=== PATIENT | female | born 1990 | race Hispanic/Latino ===

== ENCOUNTER 2017-05-14 17:19 | Inpatient (IN) | payer BC, OTHER ==
[2017-05-14 17:54] LABS: #Eosinphils 0.2 thou/uL (0.0-0.7); #Lymphocytes 1.2 thou/uL (1.20-3.40); #Monocytes 0.3 thou/uL (0.11-0.59); #Neutrophils 10.3 thou/uL (1.40-6.50); %Basophils 0.2 % (0.0-1.0); %Eosinophils 1.7 % (0.0-10.0); %Lymphocytes 10.2 % (21.0-51.0); %Monocytes 2.7 % (0.0-10.0); Hematocrit 24.4 % (36.0-47.0); Mean Platelet Volume 7.7 fL (7.4-10.4); Red Blood Cell (RBC) Count 2.82 mill/uL (4.20-5.40); White Blood Cell (WBC) Count 12.1 thou/uL (4.8-10.8)
[2017-05-14 18:04] LABS: Bilirubin Negative (Negative); Blood, Urine Large (Negative); Glucose, Urine (Dipstick) Negative (Negative); Ketone, Urine Negative (Negative); Nitrite Negative (Negative); Protein, Urine (Dipstick) 300 mg/dL (Neg-Trace); Urobilinogen 0.2 mg/dL (0.2-1.0)
[2017-05-14 18:12] LABS: Lactic Acid - Sepsis 0.8 mmol/L (0.5-2.2)
[2017-05-14 18:13] LABS: Bacteria/HPF Rare-Few HPF (None Seen); Hyaline Casts/LPF 4-6 HYALINE CAST LPF (0-3 Hyaline)
[2017-05-14] MEDS ORDERED: Acetaminophen 500 MG TAB ONE (18:13)
[2017-05-14 18:16] LABS: ALT (SGPT) Less than 7 U/L (8-55); AST (SGOT) 7 U/L (5-34); Alkaline Phosphatase 75 U/L (40-150); Anion Gap 15 mmol/L (10-20); BUN (Urea Nitrogen) 40 mg/dL (7.0-18.7); Bilirubin, Total 0.3 mg/dL (0.2-1.2); Calc. Creatinine Clearance 0 mL/min (70-130); Calcium 8.3 mg/dL (7.8-10.44); Carbon Dioxide 21 mmol/L (22-29); Chloride 103 mmol/L (98-107); Estimated GFR-MDRD 12; Globulin 3.7 g/dL (2.4-3.5); Protein, Total 7.1 g/dL (6.0-8.3)
[2017-05-14 18:28] LABS: Renal Epithelial None Seen HPF (0-3); Transitional Epithelial NONE SEEN HPF (0-3)
[2017-05-14 19:53] LABS: Troponin I Less than 0.010 ng/mL (< 0.028)
--- NOTE | 2017-05-14 20:18 | RAD ---
AP VIEW CHEST: 05/14/17 HISTORY: Cough. AP view chest is obtained on 05/14/17. COMPARISON: Comparison made to previous exam from 11/14/14. AP view chest demonstrates interval development of marked cardiomegaly which was not present on the patient's previous radiograph. This may represent possible developed cardiomyopathy or pericardial effusion. It may be worthwhile t o consider an echocardiogram to evaluate for possible cardiac abnormalities. No other intrathoracic abnormality seen. IMPRESSION: Developed cardiomegaly. There is marked enlargement of the cardiac silhouette since the previous rad iographs from approximately two years earlier. POS: MARK
[2017-05-14] MEDS ORDERED: Nitroglycerin 2% Ointment 1 INCH/1 GM Packet ONE (20:39)
[2017-05-14 21:03] LABS: Prothrombin Time 43.2 SEC (12.0-14.7)
[2017-05-14 21:04] LABS: PTT 110.8 SEC (22.9-36.1)
[2017-05-14] MEDS ORDERED: HYDROcodone/Acetaminophen 10/325 mg Tablet PO PRN (22:10)
[2017-05-14] MEDS ORDERED: Acetaminophen 325 MG TAB PO PRN (22:10)
[2017-05-14] MEDS ORDERED: HYDROcodone/Acetaminophen 5/325 mg Tablet PO PRN (22:10)
[2017-05-14] MEDS ORDERED: Sodium Chloride 0.9% 1,000 ML IV SCH (22:10)
[2017-05-14] MEDS ORDERED: Phytonadione 10 MG/ML AMP PO SCH (22:10)
[2017-05-14 23:38] VITALS: BMI 32.5
[2017-05-14] MEDS ORDERED: Hydroxychloroquine Sulfate 200 MG TAB PO SCH (23:45)
[2017-05-14] MEDS ORDERED: cloNIDine 0.3 MG TAB PO SCH (23:45)
[2017-05-14] MEDS ORDERED: Mycophenolate 250 MG CAP PO SCH (23:45)
[2017-05-14] MEDS ORDERED: Carvedilol 6.25 MG TAB PO SCH (23:45)
--- NOTE | 2017-05-15 00:28 | HP ---
PRIMARY CARE PHYSICIAN: Listed as Kevin Adame, Pt states Dimple Winters is her PCP. PRIMARY ART GILDER: Maximilian Lam M.D. and PRIMARY ELECTRIC ENGINE MECHANIC: Robinson Antony M.D. CHIEF COMPLAINT: Weakness. HISTORY OF PRESENT ILLNESS: Ms. Forte is a 27-year-old female with a history of systemic lupus erythematosus, with known complications of lupus nephritis, past DVTs due to antiphospholipid syndrome, and known chronic kidney disease. The patient was in normal state of health. I has told the ER doctor, she had 3 weeks of increased cough and chills, but no fever, no nausea, no vomiting, diarrhea, no GI bleeding. Today, she started feeling more weak than normal. She started her normal menstrual cycle 3-4 days ago which have been slightly heavier than normal, but presented to an outside facility where she had her hemoglobin checked. Hemoglobin was reportedly 6.8. She was sent to the emergency department for evaluation. Here her hemoglobin was noted to be 8.2, but due to the weakness, we are called to observe overnight. The patient denies any other complaints. No chest pain or difficulty breathing. No other current complaints. She has had multiple transfusions in the past due to low blood counts, she only lives in the 8.5 range. Last transfusion in 10/2016. She did see Dr. Lam recently and thinks that her creatinine was 3.3 at that point. PAST MEDICAL HISTORY: 1. Hypertension. 2. Systemic lupus erythematosus with nephritis. 3. Anemia of chronic disease/iron deficiency anemia. 4. DVT x2 in the past. 5. Antiphospholipid syndrome. 6. Seizure disorder x1 episode back in she thinks 2009 and no seizure activity. 7. CKD likely stage 4, has been off of hemodialysis in 2009. She follows with Dr. Maximilian Lma. PAST SURGICAL HISTORY: 1. Right upper extremity fistula placement. 2. LEEP/cone cervical resection procedure. 3. Laparoscopic ovarian cyst surgery on 07/19/2011 and cervical biopsy in the past. HOME MEDICATIONS: 1. Clonidine 0.3 mg p.o. t.i.d. 2. Coreg 6.25 mg p.o. b.i.d. 3. Coumadin 7.5 mg Saturday and Saturday, 5 mg every other day. 4. Plaquenil 200 mg p.o. b.i.d. 5. Isosorbide mononitrate 30 mg daily. 6. Mycophenolate 1000 mg b.i.d. 7. Vitamin D with calcium 4000 units daily. 8. Prednisone 5 mg daily. 9. Iron sulfate 325 mg p.o. b.i.d. 10. Folic acid 1 mg p.o. daily. 11. Calcitriol 0.5 mcg daily. ALLERGIES: NKDA. FAMILY HISTORY: Significant for her mom with lupus diagnosed 2 years after the patient was. SOCIAL HISTORY: She lives with her and daughter locally. Negative for habits x3. REVIEW OF SYSTEMS: A 10-point review of systems was performed and negative for all other systems except as stated as per HPI. The patient is currently to be evaluated for renal transplant evaluations early as next week. PHYSICAL EXAMINATION: VITAL SIGNS: Temperature 97.4, pulse 105, blood pressure 156/108, respiratory 18, O2 sat 98% on room air. GENERAL: She is awake. She is alert. She is oriented x3. She is a well- developed, well-nourished female appears to be in no acute distress. HEENT: She is normocephalic and atraumatic. Pupils are equal and reactive to light bilaterally, mucous membranes moist, no visible lesions, no thrush. NECK: Supple, without lymphadenopathy, JVD, or thyromegaly. She has normal carotid upstrokes. I do not appreciate bruits. LUNGS: Clear to auscultation bilaterally. She has no wheezes, no rales or rhonchi. She has excellent air exchange and good chest excursion symmetrical. CARDIOVASCULAR: She is tachycardic, but regular. Normal S1 and S2. No audible murmurs. ABDOMEN: Soft, is nontender, nondistended, no masses, no organomegaly. EXTREMITIES: Show no cyanosis, no clubbing, and no edema. She does have a right upper extremity fistula with palpable thrill and audible bruit. SKIN: Warm, moist, and well perfused. She has no other rashes or lesions. NEUROLOGIC: Cranial nerves II-XII are grossly intact without any focal neurologic deficits. SKIN: She has normal speech pattern and 5/5 strength. MUSCULOSKELETAL: Normal to inspection. She has no inflamed joints. No palpable joint effusion and normal range of motion. LABORATORY DATA: CMP is fairly normal except for bicarbonate of 21 and a creatinine of 4.27, up from when she thinks a baseline of 3.3. Her calculated MDRD creatinine clearance is 12, calcium is 8.3. Liver functions are normal. CBC showed a white count slightly elevated 12.1, hemoglobin 8.2, hematocrit of 24.4 and platelets 270,000. Chest x-ray showed new cardiomegaly. INR was 4.3. Troponin I and CK-MB were negative. BNP was elevated at 216 and flu studies were negative. Urinalysis was contaminated. ASSESSMENT AND PLAN: 1. Weakness: Etiology unclear. Certainly could be symptomatic anemia, but currently her hemoglobin is at her baseline level. She has been typed and crossed for 2 units, but I will not transfuse here yet. We will check a blood count in the morning. 2. Menorrhagia with increased INR. We will give her 5 mg of vitamin K now. We will recheck her INR in the morning. We will hold off on giving her Coumadin today. 3. Hypertension on clonidine, Coreg, isosorbide: We will continue these. Then the orders will be written once her medication reconciliation has been done. 4. Systemic lupus erythematosus antiphospholipid syndrome. The patient is on continuous Coumadin due to recurrent DVTs. We will continue her Plaquenil, mycophenolate and prednisone. 5. History of deep venous thrombosis x2: On Coumadin. Supratherapeutic INR present. 6. History of antiphospholipid syndrome on Coumadin for life. 7. History of seizures x1. She is not on any seizure prophylaxis. We will not continue her on any right now. 8. Acute kidney injury and chronic kidney disease: I am unsure if this progression of her chronic kidney disease or this is an acute injury. I will give her IV fluids carefully at 50 mL per hour overnight, monitor I's and O's very carefully. Recheck her creatinine in the morning. 9. New cardiomegaly: Concerning for pericarditis with effusion versus increased heart size. We will get a 2D echocardiogram in the morning. Cardiology was consulted by the emergency department. I will follow up on their opinion. AMY
[2017-05-15 05:44] LABS: #Eosinphils 0.1 thou/uL (0.0-0.7); #Lymphocytes 1.3 thou/uL (1.20-3.40); #Monocytes 0.3 thou/uL (0.11-0.59); #Neutrophils 4.5 thou/uL (1.40-6.50); %Basophils 0.6 % (0.0-1.0); %Eosinophils 1.9 % (0.0-10.0); %Lymphocytes 20.4 % (21.0-51.0); %Monocytes 4.9 % (0.0-10.0); Hematocrit 18.3 % (36.0-47.0); Mean Platelet Volume 7.6 fL (7.4-10.4); Red Blood Cell (RBC) Count 2.09 mill/uL (4.20-5.40); White Blood Cell (WBC) Count 6.3 thou/uL (4.8-10.8)
[2017-05-15 06:09] LABS: ALT (SGPT) Less than 7 U/L (8-55); AST (SGOT) 6 U/L (5-34); Alkaline Phosphatase 56 U/L (40-150); Anion Gap 14 mmol/L (10-20); BUN (Urea Nitrogen) 40 mg/dL (7.0-18.7); Bilirubin, Total 0.3 mg/dL (0.2-1.2); Calc. Creatinine Clearance 24 mL/min (70-130); Calcium 7.7 mg/dL (7.8-10.44); Carbon Dioxide 18 mmol/L (22-29); Chloride 110 mmol/L (98-107); Estimated GFR-MDRD 14; Globulin 2.7 g/dL (2.4-3.5); Protein, Total 5.2 g/dL (6.0-8.3)
[2017-05-15 08:08] LABS: Prothrombin Time 33.2 SEC (12.0-14.7)
[2017-05-15] MEDS: Calcitriol 0.25 MCG CAP PO SCH (08:53)
[2017-05-15] MEDS: Carvedilol 6.25 MG TAB PO SCH ×2 (08:53→20:49)
[2017-05-15] MEDS: Ferrous Sulfate 325 MG TAB PO SCH ×2 (08:54→20:48)
[2017-05-15] MEDS: cloNIDine 0.3 MG TAB PO SCH ×3 (08:54→20:48)
[2017-05-15] MEDS: Famotidine 20 MG TAB PO SCH (08:54)
[2017-05-15] MEDS: Folic Acid 1 MG TAB PO SCH (08:54)
[2017-05-15] MEDS: Hydroxychloroquine Sulfate 200 MG TAB PO SCH ×2 (08:55→20:49)
[2017-05-15] MEDS: predniSONE 5 MG TAB PO SCH (08:55)
[2017-05-15] MEDS: Isosorbide Dinitrate 20 MG TAB PO SCH (08:55)
[2017-05-15] MEDS: Mycophenolate 250 MG CAP PO SCH ×2 (08:55→20:47)
[2017-05-15] MEDS ORDERED: FLU VACC QS2017-18 36 mo. & older 0.5 ML SYRINGE IM ONE (09:00)
[2017-05-15] MEDS: Metoprolol Tartrate 5 MG/5 ML VIAL IVP PRN (10:43)
--- NOTE | 2017-05-15 12:10 | CON ---
DATE OF CONSULTATION: 05/15/2017 HISTORY OF PRESENT ILLNESS: Ms. Forte is a 27-year-old female with chronic renal failure from lupus nephritis. She is being [facility] for her worsening renal dysfunct ion. She eventually is nearing ESRD. She still has a working AV fistula. She was admitted for gen eralized weakness. She was noted to be severely anemic. She has received several units of packed R BC. She is being followed up by Hematology, but due to the labile hypertension, she could not receive th e Aranesp or Epogen from her ingot stripper. Her recent hemoglobin was noted at 6.0. The patient is feeling better after the blood transfusion. REVIEW OF SYSTEMS: Mild shortness of breath. No nausea, no vomiting, no diarrhea, no constipation, no syncopal episode, no diarrhea, no fever or chills, no abdominal pain, no hematochezia, no melen a, no hematemesis. Occasional joint pain. No new skin rash. MEDICATIONS: [place] 10/325 q.4h. p.r.n., Calcitriol 0.25 mcg daily, Coreg 6.25 mg p.o. b.i.d., Catap res 0.3 mg p.o. t.i.d., Pepcid 20 mg daily, Plaquenil 200 mg p.o. b.i.d., Lopressor 5 mg IV q.6h. p. r.n., Isordil 30 mg daily, CellCept 1000 mg p.o. b.i.d., normal saline at 50 mL per hour. PAST MEDICAL HISTORY: 1. Systemic lupus erythematosus. 2. Chronic renal failure from lupus nephritis, status post acute kidney injury, was on hemodialysis for several months, but eventually recovered enough renal function 3. Longstanding hypertension. 4. Chronic anemia. 5. Status post deep venous thrombosis. 6. History of antiphospholipid syndrome, status post seizure disorder. PAST SURGICAL HISTORY: 1. Status post right upper extremity fistula placement. 2. Status post cuffed hemodialysis catheter placement. 3. Status post surgical resection. 4. Status post laparoscopic ovarian cyst surgery. ALLERGIES: None. TRAUMA: None. IMMUNIZATIONS: Up to date. HOSPITALIZATIONS: Please see past medical history. SOCIAL HISTORY: The patient is , 1 child. Currently no smoking, no alcohol intake. Status post blood transfusion. Education; high school. 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 No I V drug abuse. FAMILY HISTORY: No family history of ESRD. PHYSICAL EXAMINATION: VITAL SIGNS: Blood pressure 196/74, heart rate 104, temperature 97.1, pulse ox 99%. GENERAL: Awake, alert, comfortable, not in distress. SKIN: Adequate turgor. HEENT: Pale conjunctivae, anicteric sclerae. NECK: No neck mass, no carotid bruits, no JVD. CHEST: No deformities. LUNGS: Clear breath sounds. HEART: Normal sinus rhythm. No murmur, no gallops or rubs. ABDOMEN: Globular, soft, nontender, no masses. EXTREMITIES: No edema, no deformities. LABORATORY: 05/15/2017 - White count 6.3, hemoglobin 6, hematocrit 18.3. 05/14/2017 - Hemoglobin was 8.2. Sodium 138, potassium 4.2, chloride 110, carbon dioxide 18, BUN 40, creatinine 3.9, glucose 83, calc ium 7.7, AST 6, ALT less than 7, albumin 2.5. - Creatinine 4.27. 04/11/2017 - Creatinine was 3.5. ASSESSMENT AND PLAN: 1. Chronic renal failure secondary to lupus nephritis - progressive renal dysfunction. At the pres ent time, there is no indication for any emergent dialytic intervention. We will consider initiatin g dialysis once GFR is less than 10 mL per minute. 2. Hypertension - still not optimally controlled. We will add hydralazine 50 mg p.o. t.i.d., attem pt to optimize blood pressure control, so we can initiate Epogen with this patient. 3. Anemia, multifactorial etiology, p.r.n. blood transfusion. The patient is being followed by the [facility].
--- NOTE | 2017-05-15 13:27 | EKG ---
Test Reason : Blood Pressure : / mmHG Vent. Rate : 097 BPM Atrial Rate : 097 BPM P-R Int : 140 ms QRS Dur : 084 ms QT Int : 338 ms P-R-T Axes : 038 007 045 degrees QTc Int : 429 ms Normal sinus rhythm Cannot rule out Anterior infarct (cited on or before 14-MAY-2017) Abnormal ECG When compared with ECG of 14-MAY-2017 19:18, (Unconfirmed) Questionable change in initial forces of Lateral leads Confirmed by DR. Aletha AVILA ([id number]) on 05/15/2017 1:27:11 PM Referred By: ZEINAB Confirmed By:DR. Aletha AVILA
--- NOTE | 2017-05-15 14:34 | CON ---
DATE OF CONSULTATION: 05/15/2017 INDICATION FOR CONSULTATION: This is a 27-year-old female with a pericardial effusion. HISTORY OF PRESENT ILLNESS: This very unfortunate 27-year-old female was diagnosed with lupus appro ximately 9 years ago, about 1 year after delivery of her first and only child. She is also diagnose d with antiphospholipid syndrome. She has had DVTs in the past. She has been on Coumadin chronical ly or continuously for the last 9 years. She presented to the hospital after she complained of weak ness and coughing and chills, but no fevers. She has no energy. 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 She was seen and admitted to the hospital. At that time, she was found to have signific ant anemia. Her hemoglobin was down to 6.8 today, also was repeated and was found to be 6.0. She h as been given 1 unit of blood. I believe another one is being planned for transfusion. She also bailey s a history of iron deficiency anemia in the past. Unfortunately, she also has chronic kidney disea se. She has been off of dialysis and consideration given for transplant. About 2-3 months ago, she noticed significant lower extremity edema and then it resolved on its own without dialysis. Her [facility] dialysis actually was in 2009, shortly after she was diagnosed with the renal failure and lupus. Other than that she denied any chest pain. She has been doing quite well, but complained of mainly the fatigue and most likely this is associated with her severe anemia. She denied any previous car diac history. She did have an echocardiogram performed, which shows at least a moderate-sized peric ardial effusion with what appears to be slightly early or pre-tamponade physiology with some collaps e of the right atrium in diastole, but not significant. She did have mild left atrial and left vent ricular dilatation, but this is only borderline. She had the effusion; it was measured at 1.5-1.9 c m in diameter. She also has what appears to be diastolic dysfunction, but the ejection fraction was normal at 60%-65%. PAST MEDICAL HISTORY: Significant for DVT, antiphospholipid syndrome, systemic lupus erythematosus, hypertension, seizure disorder, iron deficiency anemia, chronic kidney disease, and lupus nephritis . She has been seen by Dr. Lam, who has been following her on a routine basis. SOCIAL HISTORY: She is . She has 1 child, age 10. She has no alcohol or tobacco abuse. Lio ruth works at [employer]. FAMILY HISTORY: Noncontributory, but she does have apparently a mother with a diagnosis of lupus ap proximately 1 year after she was diagnosed. ALLERGIES: None. PRESENT MEDICATIONS: Calcitriol, Coreg 6.25 mg b.i.d., Pepcid 20 mg a day. She is on Feosol 325 mg b.i.d., Folvite 1 mg daily, hydroxychloroquine 200 mg b.i.d., isosorbide dinitrate 30 mg p.o. daily , metoprolol was given IV and I do not see any new pill was given, but she is on Coreg. She is on C ellCept. She is on warfarin; also the INR level was about 4.3 and she was given vitamin K. She is also on clonidine 0.3 mg three times a day and prednisone 5 mg a day, hydralazine 50 mg t.i.d. ALLERGIES: None. REVIEW OF SYSTEMS: A 12-point review of systems is unremarkable. She does have a right arm shunt. Otherwise, she just mainly complained of the fatigue and the weakness. PHYSICAL EXAMINATION: GENERAL: Reveals a young female. VITAL SIGNS: Her heart rate is 108 and she is in sinus rhythm. Blood pressure was 194/118. She is afebrile and respiratory rate was 20. HEENT EXAM: Reveals the head to be normocephalic, atraumatic. Carotid pulses are present. No brui ts. CHEST: Clear to auscultation. I did not hear any rales, rhonchi, or wheezing. CARDIOVASCULAR EXAM: Reveals a regular rate and rhythm. I did not hear any significant bruits, mur murs, heaves, or thrills. She does have radiation from the arm area from her right shunt up into th e cardiac area, which is indicated by a bruit. Otherwise, there were no significant abnormalities n oted. ABDOMINAL EXAM: Soft and nontender. EXTREMITIES: Show no clubbing, cyanosis, or edema. Pedal pulses are present. NEUROLOGIC: She appears to be fully intact. SKIN: Warm and dry. IMAGING: Her EKG shows a normal sinus rhythm without any acute changes. There is no indication baldo t she has any tamponade physiology on the EKG either. There were no acute abnormalities noted. She does have decreased R-wave progression in anterior leads, but this is still within normal limits. LABORATORY DATA: Shows a hemoglobin of 6.0 with a hematocrit 18.3, white blood cell count 6.3, plat elet count 183. Her INR earlier was 4.3. She was given vitamin K and it is now down to 3.1 today. Her creatinine is 3.9 with a BUN of 40 and potassium was 4.2. The BNP was 216. IMPRESSION: 1. A moderate-sized pericardial effusion with probable pre-tamponade physiology. Fortunately, she does have hypertension and the blood pressure remains stable. She continues to make some urine. flory has had a positive output today. So, there does not appear to be any significant indication that she has any tamponade at this time. 2. Significant anemia. She has already had 1 unit of transfuse. She will receive another unit. I believe she has also been followed in the past by Hematology. 3. Chronic kidney disease. This obviously may have become worsened at this time and she may need t o undergo dialysis associated with the pericardial effusion in order to decrease the effusion. This may also not only be due to the lupus, but may have some component of uremic pericarditis. She den ied any chest pain, however. I have discussed her case with Dr. Lam. He will most likely plan for early dialysis in this patient again. She has been on dialysis in the past, and she has a shunt wit h a good thrill in the right arm. 3. History of hypertension. This is obviously significantly elevated and may improve with dialysis . I believe it is up to the discretion of Dr. Lam as to how he wishes to manage the hypertension. 4. History of seizure disorder. She has had no seizures since 2008. She had 2 seizures in the and apparently has not had any seizure since that time. 5. Antiphospholipid syndrome, for which she has had deep vein thromboses in the past. She has had no recent problems. She did have, I believe, a study performed since being in the hospital that did show evidence of deep vein thrombosis, but I believe this was back in 2014. There is no indication that she has had any recent further deep vein thromboses. Her INR was elevated and she was given v itamin K. We hope that this has only decreased it down somewhat, not to completely reverse the Coum sherron effects. Otherwise, she may be at increased risk of having further deep vein thromboses. She had an echocardiogram performed today, which showed a normal ejection fraction and the moderate-size d pericardial effusion. She does have evidence of diastolic dysfunction also. As far as the valvul ar structures are concerned, she only has mild tricuspid and mitral valve regurgitation and mild pul monary valve regurgitation. She has diastolic dysfunction. Ejection fraction was about 60%-65%. W e will be more than happy to continue to follow the patient with you, but at this time it appears th at her most significant issues are the anemia and her renal insufficiency, which apparently is like stage 3-4 renal insufficiency at this time.
--- NOTE | 2017-05-15 14:52 | PDOC.PN ---
- Subjective Encounter Start Date: 05/15/17 Encounter Start Time: 14:50 Subjective: feels anxious and weak.denies any chest pain/SOB/dizziness - Objective Resuscitation Status: Resuscitation Status FULL:Full Resuscitation MAR Reviewed: Yes Vital Signs & Weight: Vital Signs (12 hours) Temp Pulse Pulse Resp BP BP BP 05/15/17 12:15 98.4 F 100 18 170/107 H 05/15/17 11:59 98.2 F 99 18 186/105 H 05/15/17 11:33 98.9 F 103 H 20 05/15/17 10:23 98.3 F 108 H 18 05/15/17 09:48 97.7 F 109 H 16 187/105 H 05/15/17 08:54 196/74 H 05/15/17 08:53 196/74 H 05/15/17 07:50 99.1 F 104 H 20 05/15/17 07:46 98.7 F 105 H 20 196/114 H 05/15/17 07:06 99.1 F 97 20 178/104 H 05/15/17 06:51 98.4 F 101 H 20 169/108 H 05/15/17 04:51 98.4 F 104 H 16 175/103 H BP Pulse Ox 05/15/17 12:15 98 05/15/17 11:59 96 05/15/17 11:33 199/116 H 98 05/15/17 10:23 194/111 H 97 05/15/17 09:48 99 05/15/17 08:54 05/15/17 08:53 05/15/17 07:50 05/15/17 07:46 99 05/15/17 07:06 05/15/17 06:51 99 05/15/17 04:51 99 Weight Weight 155 lb 14.4 oz I&O: 05/14/17 05/15/17 05/16/17 06:59 06:59 06:59 Intake Total 645 350 Output Total 900 Balance -255 350 Result Diagrams: 05/15/17 04:48 05/15/17 04:48 Additional Labs: Laboratory Tests 05/14/17 05/14/17 05/14/17 17:48 17:48 17:49 Hgb 8.2 L INR 4.3 H* Creatinine 4.27 H 05/15/17 05/15/1717 04:48 04:48 07:43 Hgb 6.0 L INR 3.1 Creatinine 3.90 H Phys Exam - Physical Examination Constitutional: NAD HEENT: PERRLA, moist MMs, sclera anicteric, oral pharynx no lesions Neck: no nodes, no JVD, supple, full ROM Respiratory: no wheezing, no rales, no rhonchi, clear to auscultation bilateral Cardiovascular: RRR, no significant murmur, no rub, gallop Gastrointestinal: soft, non-tender, no distention, positive bowel sounds Musculoskeletal: no edema, pulses present Neurological: non-focal, normal sensation, moves all 4 limbs Psychiatric: normal affect, A&O x 3 Skin: no rash Dx/Plan (1) Acute worsening of Chronic anemia Status: Acute Comment: s/p 2 units PRBC. (2) Pericardial effusion Code(s): I31.3 - PERICARDIAL EFFUSION (NONINFLAMMATORY) Status: Acute (3) Acute on chronic kidney failure Code(s): N17.9 - ACUTE KIDNEY FAILURE, UNSPECIFIED; N18.9 - CHRONIC KIDNEY DISEASE, UNSPECIFIED Status: Acute (4) Chronic anticoagulation Code(s): Z79.01 - USP (CURRENT) USE OF ANTICOAGULANTS Status: Chronic Comment: On Coumadin for DVT/APS.Pharmacy to monitor INR (5) H/O deep venous thrombosis Code(s): Z86.718 - PERSONAL HISTORY OF OTHER VENOUS THROMBOSIS AND EMBOLISM Status: Chronic (6) History of seizure Code(s): Z87.898 - PERSONAL HISTORY OF OTHER SPECIFIED CONDITIONS Status: Chronic (7) Hypertension Code(s): I10 - ESSENTIAL (PRIMARY) HYPERTENSION Status: Chronic (8) Hypertriglyceridemia Code(s): E78.1 - PURE HYPERGLYCERIDEMIA Status: Chronic (9) SLE (systemic lupus erythematosus) Code(s): M32.9 - SYSTEMIC LUPUS ERYTHEMATOSUS, UNSPECIFIED Status: Chronic Comment: on Plaquenil,Mycophenolate and prednisone (10) Antiphospholipid syndrome Code(s): D68.61 - ANTIPHOSPHOLIPID SYNDROME Status: Suspected (11) coumadin coagulopathy Status: Resolved Comment: s/p Vitamin K. - Plan out of bed/ambulate, DVT proph w/SCDs Discussed w Cardiology.Plans to initiate HD for worsening CKD -: Pericard effusion likley due to ORLY/CKD.no symptoms of pericarditis. -: monitor H/H.Chronic anemia due to CKD. -: home meds as belwo. hemodynamically stable. -: appreciate Nephrology & Cardiology input. * .cont coumadin w INR monitoring. * am labs.no overt bleeding. stop IVF Review of Systems - Review of Systems Constitutional: Weakness. negative: Fever, Chills, Sweats, Malaise, Other Respiratory: Cough. negative: Dry, Shortness of Breath, Hemoptysis, SOB with Excertion, Pleuritic Pain, Sputum, Wheezing Cardiovascular: negative: Chest Pain, Palpitations, Orthopnea, Paroxysmal Noc. Dyspnea, Edema, Light Headedness, Other Gastrointestinal: negative: Nausea, Vomiting, Abdominal Pain, Diarrhea, Constipation, Melena, Hematochezia, Other Genitourinary: negative: Dysuria, Frequency, Incontinence, Hematuria, Retention , Other Musculoskeletal: negative: Neck Pain, Shoulder Pain, Arm Pain, Back Pain, Hand Pain, Leg Pain, Foot Pain, Other Neurological: negative: Weakness, Numbness, Incoordination, Change in Speech, Confusion, Seizures, Other - Medications/Allergies Allergies/Adverse Reactions: Allergies Allergy/AdvReac Type Severity Reaction Status Date / Time No Known Allergies Allergy Verified 05/14/17 22:29 Medications: Current Medications Acetaminophen (Tylenol) 650 mg PO Q4H PRN PRN Reason: Headache/Fever or Pain Hydrocodone Bitart/Acetaminophen ([place] 10/325) 1 tab PO Q4H PRN PRN Reason: Severe Pain (7-10) Hydrocodone Bitart/Acetaminophen ([place] 5/325) 1 tab PO Q4H PRN PRN Reason: Moderate Pain (4-6) Calcitriol (Rocaltrol) 0.25 mcg PO DAILY [facility] Last Admin: 05/15/17 08:53 Dose: 0.25 mcg Carvedilol (Coreg) 6.25 mg PO BID [facility] Last Admin: 05/15/17 08:53 Dose: 6.25 mg Clonidine HCl (Catapres) 0.3 mg PO TID [facility] Last Admin: 05/15/17 08:54 Dose: 0.3 mg Famotidine (Pepcid) 20 mg PO DAILY [facility] Last Admin: 05/15/17 08:54 Dose: 20 mg Ferrous Sulfate (Feosol) 325 mg PO BID [facility] Last Admin: 05/15/17 08:54 Dose: 325 mg Folic Acid (Folvite) 1 mg PO DAILY [facility] Last Admin: 05/15/17 08:54 Dose: 1 mg Hydralazine HCl (Apresoline) 50 mg PO TID [facility] Hydroxychloroquine Sulfate (Plaquenil) 200 mg PO BID [facility] Last Admin: 05/15/17 08:55 Dose: 200 mg Sodium Chloride (Normal Saline 0.9%) 1,000 mls @ 50 mls/hr IV .Q20H [facility] Last Admin: 05/14/17 23:09 Dose: 1,000 mls Isosorbide Dinitrate (Isordil) 30 mg PO DAILY [facility] Last Admin: 05/15/17 08:55 Dose: 30 mg Metoprolol Tartrate (Lopressor) 5 mg IVP Q6H PRN PRN Reason: SBP>170 Last Admin: 05/15/17 10:43 Dose: 5 mg Miscellaneous Medication (Pharmacy To Dose) 0 each PO ASDIR PRN PRN Reason: Pharmacy to Dose WARFARIN Mycophenolate Mofetil (Cellcept) 1,000 mg PO BID [facility] Last Admin: 05/15/17 08:55 Dose: 1,000 mg Prednisone (Prednisone) 5 mg PO DAILY [facility] Last Admin: 05/15/17 08:55 Dose: 5 mg Sodium Chloride (Flush - Normal Saline) 10 ml IVF Q12HR [facility] Last Admin: 05/15/17 08:52 Dose: Not Given Sodium Chloride (Flush - Normal Saline) 10 ml IVF PRN PRN PRN Reason: Saline Flush Sodium Chloride (Flush - Normal Saline) 10 ml IVF PRN PRN PRN Reason: Saline Flush Warfarin Sodium (Coumadin) 5 mg PO 1700 [facility]
[2017-05-15] MEDS: hydrALAZINE 25 MG TAB PO SCH ×2 (15:46→20:48)
[2017-05-15] MEDS: Warfarin Sodium 5 MG TAB PO SCH (15:48)
[2017-05-15] MEDS ORDERED: Warfarin Sodium 5 MG TAB PO SCH (17:00)
--- NOTE | 2017-05-15 19:00 | ADD-PRG ---
ADDENDUM: 05/15/2017 I discussed the case with Dr. Rita Davies, her manager of corporate communications. A cardiac echo showed significant pericardial effusion, but no tamponade. The pericardial effusion may be related to her renal failu re nor from her lupus. My bias and Dr. Davies is in agreement is to initiate dialysis with this patie nt. I will do 1-hour hemodialysis in the a.m. with subsequent increase in that time. My plan is to do eventually hemodialysis with her Saturday, Saturday, Saturday. She prefers to go to [place] where she was dialyzed previously. She would like the third shift so she can continue to work. I d id discuss the plan with the patient. She is amenable to initiating dialysis. She currently has al so follow up with the renal transplant program at [facility] in [place].
[2017-05-16] MEDS: Metoprolol Tartrate 5 MG/5 ML VIAL IVP PRN (05:50)
[2017-05-16 06:03] LABS: #Eosinphils 0.1 thou/uL (0.0-0.7); #Lymphocytes 0.8 thou/uL (1.20-3.40); #Monocytes 0.3 thou/uL (0.11-0.59); #Neutrophils 8.1 thou/uL (1.40-6.50); %Basophils 0.2 % (0.0-1.0); %Eosinophils 1.5 % (0.0-10.0); %Lymphocytes 8.5 % (21.0-51.0); %Monocytes 3.2 % (0.0-10.0); Hematocrit 26.6 % (36.0-47.0); Mean Platelet Volume 7.4 fL (7.4-10.4); Red Blood Cell (RBC) Count 3.04 mill/uL (4.20-5.40); White Blood Cell (WBC) Count 9.3 thou/uL (4.8-10.8)
[2017-05-16 06:15] LABS: Prothrombin Time 19.6 SEC (12.0-14.7)
[2017-05-16 06:24] LABS: Anion Gap 15 mmol/L (10-20); BUN (Urea Nitrogen) 37 mg/dL (7.0-18.7); Calc. Creatinine Clearance 26 mL/min (70-130); Calcium 8.3 mg/dL (7.8-10.44); Carbon Dioxide 17 mmol/L (22-29); Chloride 110 mmol/L (98-107); Estimated GFR-MDRD 15
--- NOTE | 2017-05-16 09:50 | PDOC.PN ---
- Subjective Encounter Start Date: 05/16/17 Encounter Start Time: 09:15 Pt seen and examined in dialysis suite. Chart reviewed. Pt underwent her fist HD treatment today, on for an hour, removed 1L fluid, neida well. BP elevated, has not had home po meds today, and is anxious about being here. No f/C, no N/V/D/C, no CP, no Butler or orthopnea 10 point ROS performed and neg for all systems except as above - Objective Resuscitation Status: Resuscitation Status FULL:Full Resuscitation MAR Reviewed: Yes Vital Signs & Weight: Vital Signs (12 hours) Temp Pulse Resp BP Pulse Ox 05/16/17 07:10 99.7 F H 106 H 20 173/95 H 05/16/17 04:00 99.5 F 106 H 24 H 190/106 H 94 L 05/16/17 00:00 98.8 F 98 18 190/104 H 96 Weight Weight 155 lb 1 oz I&O: 05/15/17 05/16/17 05/17/17 06:59 06:59 06:59 Intake Total 645 2250 Output Total 900 400 Balance -255 1850 Result Diagrams: 05/16/17 05:41 05/16/17 05:41 Radiology Reviewed by me: Yes EKG Reviewed by me: Yes Phys Exam - Physical Examination Constitutional: NAD HEENT: PERRLA, moist MMs, sclera anicteric, oral pharynx no lesions Neck: no nodes, no JVD, supple, full ROM Respiratory: no wheezing, no rales, no rhonchi, clear to auscultation bilateral Cardiovascular: RRR, no significant murmur, no rub Gastrointestinal: soft, non-tender, no distention, positive bowel sounds Musculoskeletal: no edema, pulses present Neurological: non-focal, normal sensation, moves all 4 limbs Lymphatic: no nodes Psychiatric: normal affect, A&O x 3 Skin: no rash, normal turgor, cap refill <2 seconds Dx/Plan (1) Acute on chronic kidney failure Code(s): N17.9 - ACUTE KIDNEY FAILURE, UNSPECIFIED; N18.9 - CHRONIC KIDNEY DISEASE, UNSPECIFIED Status: Acute Qualifiers: Chronic kidney disease stage: stage 5, not on chronic dialysis Comment: restarted on HD, suspect effusion/early cardiac tamponade resulted in lower cardiac output. 1st HD today, Cr already back to baseline at 3.5 today. Will follow, Dr. Lam following (2) Acute worsening of Chronic anemia Status: Acute Comment: s/p 2 units PRBC. (3) Pericardial effusion Code(s): I31.3 - PERICARDIAL EFFUSION (NONINFLAMMATORY) Status: Acute Comment: suspected and presumed to be due to CKD and fluid accumulation, no evidence of percarditis. No other S/Sx of bleed (4) Chronic anticoagulation Code(s): Z79.01 - RESEARCH NUTRITIONIST (CURRENT) USE OF ANTICOAGULANTS Status: Chronic Comment: On Coumadin for DVT/APS.Pharmacy to monitor INR (5) H/O deep venous thrombosis Code(s): Z86.718 - PERSONAL HISTORY OF OTHER VENOUS THROMBOSIS AND EMBOLISM Status: Chronic (6) History of seizure Code(s): Z87.898 - PERSONAL HISTORY OF OTHER SPECIFIED CONDITIONS Status: Chronic (7) Hypertension Code(s): I10 - ESSENTIAL (PRIMARY) HYPERTENSION Status: Chronic Qualifiers: Hypertension type: essential hypertension Qualified Code(s): I10 - Essential (primary) hypertension (8) Hypertriglyceridemia Code(s): E78.1 - PURE HYPERGLYCERIDEMIA Status: Chronic (9) SLE (systemic lupus erythematosus) Code(s): M32.9 - SYSTEMIC LUPUS ERYTHEMATOSUS, UNSPECIFIED Status: Chronic Qualifiers: Systemic lupus erythematosus type: other Systemic lupus erythematosus organ involvement: glomerular disease Qualified Code(s): M32.14 - Glomerular disease in systemic lupus erythematosus Comment: on Plaquenil,Mycophenolate and prednisone (10) Antiphospholipid syndrome Code(s): D68.61 - ANTIPHOSPHOLIPID SYNDROME Status: Chronic Comment: pn chronic coumdin for DVT prophylaxis - Plan cont current plan of care, out of bed/ambulate * .
[2017-05-16] MEDS: cloNIDine 0.3 MG TAB PO SCH ×3 (10:06→21:41)
[2017-05-16] MEDS: hydrALAZINE 25 MG TAB PO SCH ×3 (10:07→21:41)
[2017-05-16] MEDS: Isosorbide Dinitrate 20 MG TAB PO SCH (10:07)
[2017-05-16] MEDS: Calcitriol 0.25 MCG CAP PO SCH (10:07)
[2017-05-16] MEDS: Famotidine 20 MG TAB PO SCH (10:09)
[2017-05-16] MEDS: Ferrous Sulfate 325 MG TAB PO SCH ×2 (10:10→21:41)
[2017-05-16] MEDS: Carvedilol 6.25 MG TAB PO SCH ×2 (10:10→17:56)
[2017-05-16] MEDS: Hydroxychloroquine Sulfate 200 MG TAB PO SCH ×2 (10:10→21:42)
[2017-05-16] MEDS: predniSONE 5 MG TAB PO SCH (10:11)
[2017-05-16] MEDS: Folic Acid 1 MG TAB PO SCH (10:12)
[2017-05-16] MEDS: Mycophenolate 250 MG CAP PO SCH ×2 (10:17→21:40)
[2017-05-16 11:09] LABS: #Eosinphils 0.1 thou/uL (0.0-0.7); #Lymphocytes 0.8 thou/uL (1.20-3.40); #Monocytes 0.5 thou/uL (0.11-0.59); #Neutrophils 9.2 thou/uL (1.40-6.50); %Eosinophils 1.2 % (0.0-10.0); %Lymphocytes 7.1 % (21.0-51.0); %Monocytes 4.8 % (0.0-10.0); Hematocrit 27.5 % (36.0-47.0); Mean Platelet Volume 7.1 fL (7.4-10.4); Red Blood Cell (RBC) Count 3.17 mill/uL (4.20-5.40); White Blood Cell (WBC) Count 10.6 thou/uL (4.8-10.8)
[2017-05-16 11:20] LABS: Anion Gap 15 mmol/L (10-20); BUN (Urea Nitrogen) 23 mg/dL (7.0-18.7); Calc. Creatinine Clearance 34 mL/min (70-130); Calcium 8.4 mg/dL (7.8-10.44); Carbon Dioxide 24 mmol/L (22-29); Chloride 104 mmol/L (98-107); Estimated GFR-MDRD 21
--- NOTE | 2017-05-16 12:09 | PRG ---
DATE OF SERVICE: 05/16/2017 RENAL MEDICINE SUBJECTIVE: I am currently at the bedside with the patient. She is undergoing 1 hour hemodialysis. She is tolerating it. I am attempting 1 liter fluid removal. Dialysis was initiated due to the p ericardial effusion. My plan is to do another 2-hour dialysis. The patient voices no new complaint s. She is a bit anxious with the dialysis, but I reassured her. No chest pain or shortness of ramon th. PHYSICAL EXAMINATION: VITAL SIGNS: Blood pressure is 173/95, heart rate 106, respiratory rate 20, temperature 99.7. GENERAL: Noted to be awake, alert, comfortable, and not in distress. SKIN: Adequate turgor. HEENT: Pinkish conjunctivae, anicteric sclerae. NECK: No neck mass, no carotid bruits, no JVD. CHEST: No deformities. LUNGS: Clear breath sounds. No wheezing, no crackles. HEART: Normal sinus rhythm. No murmurs, no gallops, no rubs. ABDOMEN: Globular, soft, nontender, no masses. EXTREMITIES: No edema. MEDICATIONS: Medications of 05/16/2017 was reviewed. LABORATORY DATA: Laboratories of 05/16/2017; white count 9.3, hemoglobin 9, hematocrit 26.6. Sodiu m 138, potassium 4.4, chloride 110, carbon dioxide 17, BUN 37, creatinine 3.53, glucose 76, and calc ium 8.3. 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 I will do 1 and 2-hour dialysis today and t omorrow. We will then consider discharging her. She will call the dialysis unit of her choice. Lio ruth tells me she was dialyzed at [place] last time, so she will call that unit for initiation of outpa tient dialysis. For the moment, agree with current management. Continue supportive care.
--- OUTSIDE RECORDS SUMMARY | 2017-05-16 12:17 | XMS | Clinical Summary ---
:1990 Author Organization [facility] Address [address] [place] [address] Phone Care Team Providers Name Role Phone Melanie Lincoln Primary Care Provider tel Allergies No Known Allergies Current Medications Prescription Sig. Disp. Refills Start Date End Date Status mycophenolate (CELLCEPT) 500 Take 1,000 mg Active mg tablet by mouth 2 (two) times a day. hydroxychloroquine Take by mouth 2 Active (PLAQUENIL) 200 mg tablet (two) times a day. cholecalciferol, vitamin D3, Take 4,000 Active (VITAMIN D3) 4,000 unit Units by mouth capsule daily. predniSONE (DELTASONE) 5 mg Take 5 mg by Active tablet mouth daily. warfarin (COUMADIN) 5 MG Take 5 mg by Active tablet mouth daily. Takes on M-T-T-F-S-S warfarin (COUMADIN) 7.5 MG Take 7.5 mg by Active tablet mouth daily. Takes on W-F clonIDINE HCl (CATAPRES) 0.3 Take 0.3 mg by Active MG tablet mouth 3 (three) times a day. carvedilol (COREG) 6.25 MG Take 6.25 mg by Active tablet mouth 2 (two) times a day with meals. isosorbide dinitrate Take 30 mg by Active (ISORDIL) 30 MG tablet mouth daily. Active Problems Problem Noted Date SLE (systemic lupus erythematosus) 04/30/2017 Encounters Date Type Specialty Care Team Description 05/08/2017 Documentation Transplant Nitin Frausto Renal Txp Eval Financial Appvl 04/26/2017 Telephone Transplant Alice Pace MA Pre-emptive Kidney Referral from Last 3 Months Social History Tobacco Use Types Packs/Day Years Used Date Never Smoker Sex Assigned at Date Recorded Not on file Last Filed Vital Signs Vital Sign Reading Time Taken Blood Pressure - - Pulse - - Temperature - - Respiratory Rate - - Oxygen Saturation - - Inhaled Oxygen Concentration - - Weight 74.4 kg (164 lb) 04/30/2017 11:55 AM CDT Height 147.3 cm (4' 10") 04/30/2017 11:55 AM CDT Body Mass Index 34.28 04/30/2017 11:55 AM CDT Plan of Treatment Date Type Specialty Care Team Description 05/21/2017 Appointment Transplant 05/21/2017 Hospital Encounter Transplant 05/21/2017 Appointment Transplant Results Not on filefrom Last 3 Months Insurance Payer Benefit Plan / Group Subscriber ID Type Phone Address [id number] OPEN ACCESS/NETWORK [id number] [employer] [id number] Transplant Home[phone] [facility] [place] [address] [address] Transplant Self 1990 Home: [phone] [facility] [place] [id number]
--- NOTE | 2017-05-16 14:28 | PDOC.CTH ---
<Clau Rod - Last Filed: 05/16/17 14:31> Cardiology Progress Note - Subjective The pt seen and examined. No overnight events. No cardiac complaints. She feels better after she underwent HD yesterday. Her last HD was in 2009. - Objective Vital Signs Temp Pulse Resp BP BP Pulse Ox 05/16/17 10:10 187/112 H 05/16/17 10:07 106 H 05/16/17 10:06 187/112 H 05/16/17 07:10 99.7 F H 106 H 20 173/95 H 05/16/17 04:00 99.5 F 106 H 24 H 190/106 H 94 L Weight 155 lb 1 oz 05/15/17 05/16/17 05/17/17 06:59 06:59 06:59 Intake Total 645 2250 Output Total 900 400 Balance -255 1850 - Physical Examination General/Neuro: alert & oriented x3 Neck: no JVD present Lungs: CTA Heart: RRR Abdomen: soft Extremities: other: (No edema) - Telemetry Telemetry Rhythm: ST 110-140s - Labs Result Diagrams: 05/16/17 11:02 05/16/17 11:02 Troponin/CKMB CK-MB (CK-2) 0.5 ng/mL (0-6.6) 05/14/17 19:20 Troponin I Less than 0.010 ng/mL (< 0.028) 05/14/17 19:20 - Assessment/Plan 1. CKD stage 5 - HD yesterday; managed by wheel blocker 2. Chronic anemia - s/p 2 units PRBC yesterday; cont. monitor 3. HTN - Increase Coreg from 6.25mg to 12.5mg BID; cont. monitor 4. Pericardial effusion - Echo on 05/15/17 showed EF 60-65% with mod pericardial effusion 5. SLE (systemic lupus erythematosus) - on Plaquenil, Mycophenolate and prednisone; managed by PCP 6. Hx of DVT due to Antiphospholipid syndrome, on OAC - on Coumadin; pharmacy monitor INR 7. hx of seizure - stable MAR reviewed Review of Systems - Review of Systems Constitutional: reports: no symptoms reported EENTM: reports: no symptoms reported Respiratory: reports: no symptoms reported Cardiac (ROS): reports: no symptoms reported ABD/GI: reports: no symptoms reported : reports: no symptoms reported Musculoskeletal: reports: no symptoms reported Skin: reports: no symptoms reported Neurological: reports: no symptoms reported <Aby Davies - Last Filed: 05/16/17 18:18> Cardiology Progress Note - Objective Vital Signs Temp Pulse Resp BP BP Pulse Ox 05/16/17 17:57 111 H 201/120 H 05/16/17 17:56 201/120 H 05/16/17 15:00 99.3 F 111 H 18 126/80 126/80 05/16/17 11:00 99.1 F 109 H 20 187/112 H 99 05/16/17 10:10 187/112 H 05/16/17 10:07 106 H 05/16/17 10:06 187/112 H 05/16/17 07:10 99.7 F H 106 H 20 173/95 H 95 Weight 155 lb 1 oz 05/15/17 05/16/17 05/17/17 06:59 06:59 06:59 Intake Total 645 2250 Output Total 900 400 Balance -255 1850 - Labs Result Diagrams: 05/16/17 11:02 05/16/17 11:02 Troponin/CKMB CK-MB (CK-2) 0.5 ng/mL (0-6.6) 05/14/17 19:20 Troponin I Less than 0.010 ng/mL (< 0.028) 05/14/17 19:20 - Assessment/Plan The pt. was seen and eval. by me. She is feeling better after dialysis. I agree with the A/P by the NETBACKUP ADMINISTRATOR.
[2017-05-16] MEDS ORDERED: Carvedilol 6.25 MG TAB PO ONE (14:30)
[2017-05-16] MEDS: Warfarin Sodium 5 MG TAB PO SCH (17:57)
[2017-05-16] MEDS ORDERED: Tuberculin PPD 0.1 ML VIAL I-DERMAL SCH (20:00)
--- NOTE | 2017-05-17 09:28 | DIS ---
DATE OF ADMISSION: 05/14/2017 DATE OF DISCHARGE: 05/17/2017 DISCHARGE DIAGNOSES: 1. Chronic kidney disease stage 4, increased to stage 5 requiring dialysis at this time. 2. Fluid overload with pericardial effusion. 3. Early cardiac tamponade secondary to pericardial effusion. 4. Symptomatic anemia. 5. Anemia of renal disease. 6. Systemic lupus erythematosus. 7. Antiphospholipid syndrome. 8. History of deep venous thrombosis x2. 9. Seizure disorder. 10. Essential hypertension. CONSULTATIONS: 1. Nephrology, Dr. Lam. 2. Cardiology, Dr. Davies. PROCEDURES: 1. A 2D echocardiogram 05/15/2017. 2. Hemodialysis for 1 hour on 05/16 and 2 hours on 05/17/2017. HOSPITAL COURSE: Ms. Forte is a 27-year-old female with hypertension, lupus with ne phritis, and chronic kidney disease. The patient was feeling weaker than normal [facility]. She was found to be anemic, and had mentioned that she had been o n her normal period, that had been slightly heavier than normal. She is on anticoagulation with Cou madin for her recurrent DVT and a antiphospholipid syndrome. At an outside facility, hemoglobin was 6.8, so she was transferred here, but here, the hemoglobin wa s 8. We had placed her in observation initially and admitted her. HOSPITAL COURSE: The patient was seen and examined by me in the emergency department. Repeat labs were ordered for the morning. A 2D echocardiogram was ordered, and because of the increased creatin ine, Dr. Lam was consulted, who is her shift boss. Overnight, she did okay, the morning of 05/15/2017 she had an echocardiogram that showed a large per icardial effusion with early tamponade physiology and it was felt that her increased blood pressure and fluid accumulation would likely lead to low cardiac output state and hence her acute kidney inju ry. She was started on dialysis for 1 hour on 05/16/2017 to remove fluid, had 1 liter fluid removed and tolerated well, she received a 2-hour dialysis on the day of discharge and tolerated that as we ll. Her blood pressure remained elevated throughout the admission despite increasing her Coreg to 1 2.5 b.i.d. and adding hydralazine t.i.d. The patient states when she is in the hospital, blood press ure always runs high because she is anxious. She was cleared for discharge per Dr. Lam and was discharged home in stable condition. PHYSICAL EXAMINATION: The patient was seen and examined on the day of discharge. Discharge plan and disposition were discussed with the patient face to face in her chair in dialysis . DISCHARGE MEDICATIONS: 1. Hydralazine 50 mg p.o. t.i.d., prescription for 90 tablets with 2 refills sent to her pharmacy. 2. Carvedilol 12.5 mg p.o. b.i.d. Prescription for 60 tablets, 2 refills sent to her pharmacy. 3. Isosorbide dinitrate 30 mg daily. 4. Clonidine 0.3 mg p.o. t.i.d. 5. Prednisone 5 mg a day. 6. Mycophenolate 1000 mg p.o. b.i.d. 7. Plaquenil 200 mg p.o. b.i.d. 8. Calcitriol 0.25 mcg daily. 9. Cholecalciferol 4000 units daily. 10. Iron sulfate 325 mg p.o. t.i.d. 11. Folic acid 1 mg p.o. daily. 12. Warfarin per home dosing which currently was 5 mg daily, except for 7.5 mg on Saturday and Sat. FOLLOWUP APPOINTMENTS 1. Dr. Lam in 1-[address] Davies in 3-4 weeks. 3. Primary care physician within a week. DISPOSITION: The patient discharged home via private vehicle. DISCHARGE CONDITION: Stable. INSTRUCTIONS: Patient was instructed to call her PCP or Dr. Lam or come back to the ER for uncontro lled blood pressure.
[2017-05-17 09:29] LABS: Prothrombin Time 17.1 SEC (12.0-14.7)
[2017-05-17] MEDS: Isosorbide Dinitrate 20 MG TAB PO SCH (09:52)
[2017-05-17] MEDS: Hydroxychloroquine Sulfate 200 MG TAB PO SCH (09:54)
[2017-05-17] MEDS: predniSONE 5 MG TAB PO SCH (09:55)
[2017-05-17] MEDS: Famotidine 20 MG TAB PO SCH (09:55)
[2017-05-17] MEDS: Calcitriol 0.25 MCG CAP PO SCH (09:55)
[2017-05-17] MEDS: Carvedilol 6.25 MG TAB PO SCH (09:56)
[2017-05-17] MEDS: Ferrous Sulfate 325 MG TAB PO SCH (09:56)
[2017-05-17] MEDS: Folic Acid 1 MG TAB PO SCH (09:57)
[2017-05-17] MEDS: cloNIDine 0.3 MG TAB PO SCH (09:58)
[2017-05-17] MEDS: Mycophenolate 250 MG CAP PO SCH (11:01)
[2017-05-17] MEDS: hydrALAZINE 25 MG TAB PO SCH (11:02)
[2017-05-17 11:05] VITALS: BP 140/76
--- NOTE | 2017-05-17 12:12 | PDOC.CTH ---
<Clau Rod - Last Filed: 05/17/17 12:10> Cardiology Progress Note - Subjective The pt seen and examined. No overnight events. No cardiac complaints. - Objective Vital Signs Temp Pulse Resp BP BP Pulse Ox 05/17/17 11:02 114 H 140/76 05/17/17 09:58 180/106 H 05/17/17 09:56 183/106 H 05/17/17 09:46 108 H 20 183/106 H 96 05/17/17 09:45 98.0 F 114 H 20 98 05/17/17 04:00 98.6 F 92 18 183/104 H 94 L Weight 152 lb 6 oz 05/16/17 05/17/17 05/18/17 06:59 06:59 06:59 Intake Total 2250 1460 Output Total 400 1200 Balance 1850 260 - Physical Examination General/Neuro: alert & oriented x3 Neck: no JVD present Lungs: CTA Heart: RRR Abdomen: soft Extremities: other: (No edema) - Telemetry Telemetry Rhythm: SR 99 - Labs Result Diagrams: 05/16/17 11:02 05/16/17 11:02 Troponin/CKMB CK-MB (CK-2) 0.5 ng/mL (0-6.6) 05/14/17 19:20 Troponin I Less than 0.010 ng/mL (< 0.028) 05/14/17 19:20 - Assessment/Plan 1. CKD stage 5 - HD today; tolerated well; managed by dross skimmer 2. Chronic anemia - s/p 2 units PRBC yesterday; cont. monitor 3. HTN - Stable with current medication; cont. monitor 4. Pericardial effusion - Echo on 05/15/17 showed EF 60-65% with mod pericardial effusion 5. SLE (systemic lupus erythematosus) - on Plaquenil, Mycophenolate and prednisone; managed by PCP 6. Hx of DVT due to Antiphospholipid syndrome, on OAC - on Coumadin; pharmacy monitor INR 7. hx of seizure - stable MAR reviewed * Latest ECG on tele record was SR with HR 90s. From Cardiac standpoint, The pt is stable to d/c home; The pt will f/u with Dr Davies office within 1 month. Review of Systems - Review of Systems Constitutional: reports: no symptoms reported EENTM: reports: no symptoms reported Respiratory: reports: no symptoms reported Cardiac (ROS): reports: no symptoms reported ABD/GI: reports: no symptoms reported : reports: no symptoms reported Musculoskeletal: reports: no symptoms reported Skin: reports: no symptoms reported <Aby Davies - Last Filed: 05/17/17 13:03> Cardiology Progress Note - Objective Vital Signs Temp Pulse Resp BP BP Pulse Ox 05/17/17 11:02 114 H 140/76 05/17/17 09:58 180/106 H 05/17/17 09:56 183/106 H 05/17/17 09:46 108 H 20 183/106 H 96 05/17/17 09:45 98.0 F 114 H 20 98 05/17/17 04:00 98.6 F 92 18 183/104 H 94 L Weight 152 lb 6 oz 05/16/17 05/17/17 05/18/17 06:59 06:59 06:59 Intake Total 2250 1460 Output Total 400 1200 Balance 1850 260 - Labs Result Diagrams: 05/16/17 11:02 05/16/17 11:02 Troponin/CKMB CK-MB (CK-2) 0.5 ng/mL (0-6.6) 05/14/17 19:20 Troponin I Less than 0.010 ng/mL (< 0.028) 05/14/17 19:20 - Assessment/Plan Pt. was seen and eval by me. i agree with the A/P by the TERMITE EXTERMINATOR HELPER. Repeat echo in 4-5 weeks weeks. I will follow her in the office.
[2017-05-17 13:23] VITALS: TEMP 99
[2017-05-18] MEDS ORDERED: READ PPD TEST SITE PO SCH (20:00)
== END 2017-05-17 13:17 | disposition home or self-care (01) | DRG 683 ==
LOC: ERS 17:19 → 2SW 22:07 → OBSVTOIN 22:07 → 2NO 05-15 10:30
PROVIDERS: ADMIT Family Medicine; ATTEND Family Medicine
PROC: 30233N1 Transfusion of Nonautologous Red Blood Cells into Peripheral Vein, Percutaneous Approach (ICD-10-PCS; 2017-05-14)
PROC: 5A1D70Z Performance of Urinary Filtration, Intermittent, Less than 6 Hours Per Day (ICD-10-PCS; principal; 2017-05-15)
DX: N17.9 Acute kidney failure, unspecified (principal); I31.4 Cardiac tamponade; D68.61 Antiphospholipid syndrome; M32.14 Glomerular disease in systemic lupus erythematosus; I31.3 Pericardial effusion (noninflammatory); M32.19 Other organ or system involvement in systemic lupus erythematosus; N18.4 Chronic kidney disease, stage 4 (severe); E87.70 Fluid overload, unspecified; R53.1 Weakness; Z86.718 Personal history of other venous thrombosis and embolism; I10 Essential (primary) hypertension; D63.8 Anemia in other chronic diseases classified elsewhere; I12.9 Hypertensive chronic kidney disease with stage 1 through stage 4 chronic kidney disease, or unspecified chronic kidney disease; Z79.01 Long term (current) use of anticoagulants; E78.1 Pure hyperglyceridemia
CPT/HCPCS: 36415; 36416; 36430; 71010; 80048; 80053; 81003; 81015; 81025; 82553; 83605; 83880; 84484; 85025; 85610; 85730; 86580; 86704; 86706; 86803; 86850; 86870; 86900; 86901; 86922; 87040; 87086; 87340; 90471; 90682; 90935; 93005; 93010; 93306; 96360; A4216; G0008; G0257; J3430; J7517; P9016; Q2036

== ENCOUNTER → 2017-06-10 | Day surgery (SDC) | payer OTHER ==
[~2017-06-10] MED LIST: Sodium Chloride 0.9% 20 ML ONE
[2017-06-10 22:16] VITALS: BP 163/97; TEMP 98.2
== END ==
LOC: ONC/OP 09:53
PROVIDERS: ATTEND Internal Medicine Nephrology
PROC: 30233N1 Transfusion of Nonautologous Red Blood Cells into Peripheral Vein, Percutaneous Approach (ICD-10-PCS; principal; 2017-06-10)
DX: M32.14 Glomerular disease in systemic lupus erythematosus (principal); I12.9 Hypertensive chronic kidney disease with stage 1 through stage 4 chronic kidney disease, or unspecified chronic kidney disease; N18.4 Chronic kidney disease, stage 4 (severe); D63.1 Anemia in chronic kidney disease; D50.9 Iron deficiency anemia, unspecified; D68.61 Antiphospholipid syndrome; G40.909 Epilepsy, unspecified, not intractable, without status epilepticus; Z79.899 Other long term (current) drug therapy; Z79.52 Long term (current) use of systemic steroids; Z79.01 Long term (current) use of anticoagulants; Z98.890 Other specified postprocedural states; Z82.69 Family history of other diseases of the musculoskeletal system and connective tissue
CPT/HCPCS: 36415; 36430; 86850; 86900; 86901; 86922; A4216; P9016

== ENCOUNTER 2017-06-24 08:27 | Outpatient (CLI) | payer OTHER ==
[2017-06-24 09:56] LABS: #Eosinphils 0.1 thou/uL (0.0-0.7); #Lymphocytes 1.2 thou/uL (1.20-3.40); #Monocytes 0.3 thou/uL (0.11-0.59); #Neutrophils 4.8 thou/uL (1.40-6.50); %Basophils 0.6 % (0.0-1.0); %Eosinophils 1.2 % (0.0-10.0); %Lymphocytes 18.3 % (21.0-51.0); %Monocytes 4.8 % (0.0-10.0); Hematocrit 21.3 % (36.0-47.0); Mean Platelet Volume 7.6 fL (7.4-10.4); Red Blood Cell (RBC) Count 2.51 mill/uL (4.20-5.40); White Blood Cell (WBC) Count 6.4 thou/uL (4.8-10.8)
[2017-06-24 10:04] LABS: PTT 41.3 SEC (22.9-36.1)
[2017-06-24 10:37] LABS: Chloride 99 mmol/L (98-107)
[2017-06-24 10:38] LABS: Calcium 8.8 mg/dL (7.8-10.44)
[2017-06-24 10:40] LABS: Carbon Dioxide 31 mmol/L (22-29)
[2017-06-24 10:42] LABS: BUN (Urea Nitrogen) 38 mg/dL (7.0-18.7); Calc. Creatinine Clearance 0 mL/min (70-130); Estimated GFR-MDRD 10
[2017-06-24 19:57] LABS: Anion Gap 12 mmol/L (10-20)
== END 2017-06-24 08:28 | disposition home or self-care (01) ==
LOC: LABBT 08:27
PROVIDERS: ATTEND Specialist
DX: Z01.812 Encounter for preprocedural laboratory examination (principal); L93.0 Discoid lupus erythematosus; I12.0 Hypertensive chronic kidney disease with stage 5 chronic kidney disease or end stage renal disease; N18.6 End stage renal disease; Z79.01 Long term (current) use of anticoagulants
CPT/HCPCS: 80048; 84703; 85025; 85610; 85730

== ENCOUNTER 2017-06-28 06:05 | Day surgery (SDC) | payer OTHER ==
--- NOTE | 2017-06-18 13:24 | HP ---
HISTORY OF PRESENT ILLNESS: A 27-year-old female dialyzes Saturday, Saturday, Saturday, 3:00 p.m. at [address] Patient is on Coumadin for phospholipid deficiency. She has a function ing right arm transposition fistula cephalic vein. She has seen me today regarding laparoscopic lavon toneal dialysis catheter, which we will plan as an outpatient under general anesthesia. She will alexsandra n to see her peritoneal dialysis nurse 3-7 days postoperatively. She understands the risks and benef its and consents. On 10/18/2009, right arm cephalic vein transposition fistula after 05/24/2009, rig ht arm primary fistula. 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 She is visiting [place] for t ransplant evaluation. She has end-stage renal disease secondary to hypertension and lupus. Once I h ave placed her fistula, she had catheters placed and removed and replaced for infections. She was ab le to come off dialysis in 01/2010, but had resume dialysis in 04/2017. She has seen Dr. Cassia barbosa r her lupus. She is on a steroid taper. Dr. Lam is her building serviceman. PAST SURGICAL HISTORY: C-sections, hemodialysis catheter, right arm primary fistula and eventual tra nsposition, laparoscopic ovarian cyst evacuation. PAST MEDICAL HISTORY: Hypertension, lupus. TOBACCO: None. ALCOHOL: None. ALLERGIES: None. MEDICATIONS: Mycophenolate 500 mg 2 tablets twice a day, hydroxychloroquine 200 mg twice a day, pred nisone 1 mg 4 tablets a day, carvedilol 12.5 mg b.i.d., clonidine 0.3 mg b.i.d., isosorbide 30 mg p.o . daily, Coumadin 5 mg a day, folic acid 1 mg a day, ferrous sulfate 325 mg twice a day, Calcitriol o nce a day, vitamin D once a day. REVIEW OF SYSTEMS: Ten point noncontributory. PHYSICAL EXAMINATION: VITAL SIGNS: 146 pounds, 4 feet 11, 30 BMI, 130/91, 91, 98.6 degrees. HEENT: Unremarkable. LUNGS: Clear to auscultation. CARDIAC: Regular rate and rhythm without murmur or gallop. ABDOMEN: Soft, nontender, no hernias. EXTREMITIES: Right arm primary fistula, cephalic vein transposition type with good thrill and bruit. ASSESSMENT AND PLAN: 1. End-stage renal disease on maintenance dialysis Saturday, Saturday, and Saturday. She initially had a right arm fistula, started dialysis in 2008, but had renal recovery after treatment of her lupus a nd came off dialysis 01/2010. She restarted hemodialysis using right arm fistula 04/2017. Plan is t o place a laparoscopic peritoneal dialysis catheter. She understands the risks and benefits and cons ents. 2. Coumadin anticoagulation status, she will hold her Coumadin 4 days prior to the operation, resume it the next day. 3. Hypertension. 4. Lupus.
[2017-06-24 09:00] VITALS: BMI 28.8
[2017-06-28] MEDS ORDERED: Bupivacaine/Epinephrine 0.25% 30 ML VIAL ONE (06:35)
[2017-06-28] MEDS ORDERED: Lidocaine 1% w/Epinephrine 1:200K 30 ML VIAL ONE (06:35)
[2017-06-28] MEDS ORDERED: Heparin 10,000 UNITS/1 ML VIAL ONE (06:35)
[2017-06-28] MEDS ORDERED: Lidocaine 2% PF 5 ML VIAL ONE (06:37)
[2017-06-28] MEDS ORDERED: Midazolam HCl 2 mg/2 ml Vial ONE ×2 (06:40→07:16)
[2017-06-28] MEDS ORDERED: Fentanyl 100 MCG/2 ML VIAL ONE (06:40)
[2017-06-28] MEDS ORDERED: CEFAZOLIN/Water 2 GM/20 ML SYRINGE ONE (07:16)
[2017-06-28 07:30] LABS: PTT 29.7 SEC (22.9-36.1); Prothrombin Time 13.6 SEC (12.0-14.7)
--- NOTE | 2017-06-28 09:45 | OP ---
PREOPERATIVE DIAGNOSIS: End-stage renal disease, desires peritoneal dialysis access. POSTOPERATIVE DIAGNOSIS: End-stage renal disease, desires peritoneal dialysis access. PROCEDURE: Laparoscopic peritoneal dialysis catheter and omentopexy, lysis of adhesions, omentum adh erent to the uterus, which was adherent to the anterior abdominal wall suprapubic area. SURGEON: Saran Fabian M.D. ANESTHESIA: General. Local 0.25% Marcaine with epinephrine, 30 mL, mixed with 2% Xylocaine, 10 mL. PROCEDURE IN DETAIL: The patient was taken to the operating room where under general anesthesia, abd omen was clipped of hair, prepared with chloraprep, draped in routine fashion. Local anesthetic infi ltrated into skin and subcutaneous tissue about all port sites. Bilateral far lateral subcostal inci socrates made and pneumoperitoneum to 15 mmHg obtained with the Veress needle, replacing it with a 5 port . Video laparoscope inserted. Contralateral subcostal incision made and a 5 port placed. Counter i ncision was made at the umbilical level on the patient's right per her request. An 8 mm port placed through this incision and directed caudally and subcutaneous tissue visualized laparoscopically place d through the rectus sheath and penetrating the abdominal wall inferiorly into the abdominal cavity. Double cuffed pigtail peritoneal dialysis catheter placed through this port into the abdominal cavit y, placing the internal cuff in the rectus sheath, removing the port and then placed [place] dissect or in the planned exit site more inferior right lower quadrant and laterally and a [place] dissector placed through this planned exit site into the counterincision, grasping the peritoneal dialysis cat heter withdrawn and placing the external cuff beneath the skin exit site. Subcutaneous tissues appro ximated with 3-0 Monocryl, skin with subdermal 4-0 Monocryl and DermaGlue applied. Port irrigated wi th heparinized saline solution and a cap applied. Omentum was adherent to the uterus on the left and laparoscopic adhesiolysis undertaken with the LigaSure. This freed the omentum, which was then brou ght up into the upper abdomen and omentopexy performed with the GraNee needle 0 Vicryl suture securin g the omentum to the anterior abdominal wall superiorly. Good hemostasis noted. Irrigant and pneumo peritoneum evacuated. All instruments removed and all skin incisions approximated with interrupted s ubdermal 4-0 Monocryl and DermaGlue applied. The patient tolerated the procedure well.
--- NOTE | 2017-06-28 11:48 | RAD ---
AP VIEW OF CHEST: Date: 06/28/17 INDICATION: History of dialysis catheter placement. FINDINGS: No central venous catheter is evident. There is mild to moderate cardiomegaly which is stable. No air space opacity or pleural effusion is evident. IMPRESSION: 1. No dialysis catheter demonstrated. 2. Stable cardiomegaly. POS: [facility]
[2017-06-28] MEDS ORDERED: Ondansetron ODT 4 MG TAB ONE (12:27)
[2017-06-28] MEDS ORDERED: Lidocaine 1% PF 5 ML VIAL ONE (16:04)
[2017-06-28] MEDS ORDERED: Dexamethasone 20 MG/5 ML VIAL ONE (16:04)
[2017-06-28] MEDS ORDERED: Glycopyrrolate 0.2 MG/ML 5 ML SYRINGE ONE (16:04)
[2017-06-28] MEDS ORDERED: Propofol 200 MG/20 ML VIAL ONE (16:04)
[2017-06-28] MEDS ORDERED: Ondansetron HCl/PF 4 MG/2 ML Vial ONE (16:04)
== END 2017-06-28 14:00 | disposition home or self-care (01) ==
LOC: SDC 06:05
PROVIDERS: ATTEND Specialist
PROC: 0WHG43Z Insertion of Infusion Device into Peritoneal Cavity, Percutaneous Endoscopic Approach (ICD-10-PCS; principal; 2017-06-28)
DX: I12.0 Hypertensive chronic kidney disease with stage 5 chronic kidney disease or end stage renal disease (principal); N18.6 End stage renal disease; M32.9 Systemic lupus erythematosus, unspecified; Z79.01 Long term (current) use of anticoagulants; Z79.899 Other long term (current) drug therapy; Z98.890 Other specified postprocedural states
CPT/HCPCS: 36415; 71010; 85610; 85730; J1100; J1644; J2001; J2250; J2405; J2704; J3010; Q0162

== ENCOUNTER → 2017-06-28 | Day surgery (SDC) | payer OTHER ==
[~2017-06-28] MED LIST changes: +FLU VACC QS2017-18 36 mo. & older 0.5 ML SYRINGE IM ONE; -Sodium Chloride 0.9% 20 ML ONE
[2017-06-29 04:25] VITALS: BP 158/92; TEMP 98
== END ==
LOC: ONC/OP 19:40
PROVIDERS: ATTEND Internal Medicine Nephrology
PROC: 30233N1 Transfusion of Nonautologous Red Blood Cells into Peripheral Vein, Percutaneous Approach (ICD-10-PCS; principal; 2017-06-28)
DX: I12.0 Hypertensive chronic kidney disease with stage 5 chronic kidney disease or end stage renal disease (principal); N18.6 End stage renal disease; D63.1 Anemia in chronic kidney disease; M32.14 Glomerular disease in systemic lupus erythematosus; D68.61 Antiphospholipid syndrome; G40.919 Epilepsy, unspecified, intractable, without status epilepticus; Z99.2 Dependence on renal dialysis; Z79.01 Long term (current) use of anticoagulants; Z79.52 Long term (current) use of systemic steroids; Z79.899 Other long term (current) drug therapy; Z98.890 Other specified postprocedural states; Z86.718 Personal history of other venous thrombosis and embolism
CPT/HCPCS: 36415; 36430; 86850; 86870; 86900; 86901; 86921; P9016

== ENCOUNTER → 2017-07-12 | Day surgery (SDC) | payer OTHER ==
[2017-07-12 23:52] VITALS: BMI 29.0
[2017-07-13 09:47] VITALS: BP 176/110; TEMP 98.2
== END ==
LOC: SDC/OP 23:26
PROVIDERS: ATTEND Internal Medicine Nephrology
PROC: 30233N1 Transfusion of Nonautologous Red Blood Cells into Peripheral Vein, Percutaneous Approach (ICD-10-PCS; principal; 2017-07-12)
DX: I12.0 Hypertensive chronic kidney disease with stage 5 chronic kidney disease or end stage renal disease (principal); N18.6 End stage renal disease; D63.1 Anemia in chronic kidney disease; M32.14 Glomerular disease in systemic lupus erythematosus; G40.909 Epilepsy, unspecified, not intractable, without status epilepticus; D68.61 Antiphospholipid syndrome; Z99.2 Dependence on renal dialysis; Z79.01 Long term (current) use of anticoagulants; Z79.52 Long term (current) use of systemic steroids; Z79.899 Other long term (current) drug therapy; Z98.890 Other specified postprocedural states
CPT/HCPCS: 36415; 36430; 86850; 86900; 86901; 86921; P9016

== ENCOUNTER 2017-07-27 09:14 | Day surgery (SDC) | payer OTHER ==
[2017-07-27 18:09] VITALS: BP 168/88; TEMP 97.8
== END 2017-07-27 18:12 | disposition home or self-care (01) ==
LOC: ONC/OP 09:14
PROVIDERS: ATTEND Emergency Medicine
PROC: 30233N1 Transfusion of Nonautologous Red Blood Cells into Peripheral Vein, Percutaneous Approach (ICD-10-PCS; principal; 2017-07-27)
DX: D68.312 Antiphospholipid antibody with hemorrhagic disorder (principal); I12.0 Hypertensive chronic kidney disease with stage 5 chronic kidney disease or end stage renal disease; N18.6 End stage renal disease; M32.14 Glomerular disease in systemic lupus erythematosus; Z99.2 Dependence on renal dialysis; Z79.01 Long term (current) use of anticoagulants; Z79.52 Long term (current) use of systemic steroids; Z79.899 Other long term (current) drug therapy; Z98.890 Other specified postprocedural states
CPT/HCPCS: 36415; 36430; 86850; 86900; 86901; 86921; P9016

== ENCOUNTER 2017-08-27 09:08 | Day surgery (SDC) | payer OTHER ==
[2017-08-27 17:04] LABS: Hemoglobin 8.9 g/dL (12.0-16.0); Mean Corpuscular HGB CONC 34.7 g/dL (32.0-36.0); Mean Corpuscular Hemoglobin 31.3 pg (27.0-31.0); Mean Corpuscular Volume 90.4 fl (81.0-99.0); Mean Platelet Volume 7.2 fL (7.4-10.4); Platelet Count 167 thou/uL (130-400); RBC Distribution Width 13.4 % (11.5-14.5); Red Blood Cell (RBC) Count 2.85 mill/uL (4.20-5.40); White Blood Cell (WBC) Count 5.9 thou/uL (4.8-10.8)
[2017-08-27 17:09] VITALS: BP 161/94; TEMP 99.1
== END 2017-08-27 17:16 | disposition home or self-care (01) ==
LOC: ONC/OP 09:08 → 3SE 09:12 → ONC/OP 17:16
PROVIDERS: ATTEND Internal Medicine Nephrology
PROC: 30233N1 Transfusion of Nonautologous Red Blood Cells into Peripheral Vein, Percutaneous Approach (ICD-10-PCS; principal; 2017-08-27)
DX: I12.0 Hypertensive chronic kidney disease with stage 5 chronic kidney disease or end stage renal disease (principal); N18.6 End stage renal disease; D63.1 Anemia in chronic kidney disease; M32.9 Systemic lupus erythematosus, unspecified; Z98.890 Other specified postprocedural states
CPT/HCPCS: 36415; 36430; 85027; 86850; 86900; 86901; 86921; P9016

== ENCOUNTER 2019-03-06 10:44 | Day surgery (SDC) | payer BC ==
[2019-03-05 11:44] VITALS: BMI 31.3
--- NOTE | 2019-03-06 11:22 | HP ---
HISTORY OF PRESENT ILLNESS: Andria Chen is a 28-year-old female on maintenance dialysis at [address] on Saturday, Saturday, and Saturday. She is on Coumadin. She had placement of 06/28/2017 laparoscopic peritoneal dialysis catheter, lysis of adhesion, omentum adherent to the uterus, taken down. She did well with this until she developed some drainage from her PD catheter exit site. This initially had to be removed at [facility]. She now desires a new PD catheter. Plan is to place a new PD catheter. The patient has history of lupus and antiphospholipid syndrome and takes Coumadin. She dialyzes utilizing her fistula, which is working well for dialysis. I performed a right arm cephalic vein transposition fistula in September 2009 after performing an initial fistula in May 2009. Plan is for new laparoscopic PD catheter. MEDICATIONS: 1. Coumadin. 2. Clonidine. 3. Carvedilol. 4. Prednisone. 5. Mycophenolate. 6. . 7. Folic acid. 8. Ferrous sulfate. 9. Calcitriol. 10. Vitamin D. PAST MEDICAL HISTORY: Lupus, end-stage renal disease on maintenance dialysis, shingles, history of dialysis. PAST SURGICAL HISTORY: Colon biopsy, left ovarian cyst removal, dialysis fistula placed, date as noted above, laparoscopic PD catheter placed and subsequently removed at [facility] in December. REVIEW OF SYSTEMS: Noncontributory. PHYSICAL EXAMINATION: VITAL SIGNS: 151 pounds, 58 inches, 161/104, heart rate 91, and 98.4 degrees. HEAD, EARS, EYES, NOSE, AND THROAT: Unremarkable. LUNGS: Clear to auscultation. CARDIAC: Regular rate and rhythm without murmur or gallop. ABDOMEN: Soft and nontender. Healing site skin with subcutaneous tissue without infection. No sinus tract. EXTREMITIES: Unremarkable. ASSESSMENT AND PLAN: End-stage renal disease, desires replacement with PD catheter. We will plan laparoscopic placement as an outpatient. She will hold her Coumadin for 4 days prior to the procedure and check PT/INR the morning of surgery. She understands risks and benefits, consents. Job ID: [id number]
[2019-03-06 11:27] LABS: #Eosinphils 0.1 thou/uL (0.0-0.7); #Lymphocytes 1.3 thou/uL (1.20-3.40); #Monocytes 0.6 thou/uL (0.11-0.59); #Neutrophils 6.3 thou/uL (1.40-6.50); %Basophils 0.1 % (0.0-1.0); %Lymphocytes 15.5 % (21.0-51.0); %Monocytes 7.5 % (0.0-10.0); %Neutrophils 75.9 % (42.0-75.0); Hemoglobin 10.8 g/dL (12.0-16.0); Mean Corpuscular HGB CONC 33.8 g/dL (32.0-36.0); Mean Corpuscular Hemoglobin 29.4 pg (27.0-31.0); Mean Corpuscular Volume 87.2 fL (78.0-98.0); Mean Platelet Volume 8.2 fL (7.4-10.4); Platelet Count 184 thou/uL (130-400); RBC Distribution Width 16.8 % (11.5-14.5); Red Blood Cell (RBC) Count 3.67 mill/uL (4.20-5.40); White Blood Cell (WBC) Count 8.2 thou/uL (4.8-10.8)
[2019-03-06 11:34] LABS: INR-International Normal Ratio 1.3; PTT 48.1 SEC (22.9-36.1); Prothrombin Time 16.5 SEC (12.0-14.7)
[2019-03-06 11:58] LABS: Anion Gap 16 mmol/L (10-20); BUN (Urea Nitrogen) 29 mg/dL (7.0-18.7); Calc. Creatinine Clearance 13 mL/min (70-130); Carbon Dioxide 27 mmol/L (22-29); Chloride 100 mmol/L (98-107); Estimated GFR-MDRD 7; Glucose 90 mg/dL (70-105); Sodium 139 mmol/L (136-145)
[2019-03-06] MEDS ORDERED: ceFAZolin Sodium (SDC) 2 GM/100 ML BAG ONE (12:06)
[2019-03-06] MEDS ORDERED: Bupivacaine HCl 0.5%/Epinephrine 1:200,000/PF 30 ml Vial ONE (13:24)
[2019-03-06] MEDS ORDERED: Heparin 10,000 UNITS/1 ML VIAL ONE (13:26)
[2019-03-06] MEDS ORDERED: Fentanyl 100 MCG/2 ML VIAL ONE (13:31)
[2019-03-06] MEDS ORDERED: traMADol HCl 50 MG TAB ONE (15:36)
--- NOTE | 2019-03-06 20:39 | OP ---
DATE OF PROCEDURE: 03/06/2019 PREOPERATIVE DIAGNOSIS: End-stage renal disease, desires new peritoneal dialysis catheter. POSTOPERATIVE DIAGNOSIS: End-stage renal disease, desires new peritoneal dialysis catheter. PROCEDURE PERFORMED: Laparoscopic peritoneal dialysis catheter, laparoscopic omentopexy. ANESTHESIA: General, local 0.5% Marcaine with epinephrine 30 mL mixed with 2% xylocaine 10 mL. DESCRIPTION OF PROCEDURE: The patient was taken to the operating room, where under general anesthesia, abdomen was prepared with ChloraPrep and draped in routine fashion. Bilateral subcostal incision was made. Pneumoperitoneum to 15 mmHg obtained with a Veress needle, replaced with a 5 port laparoscope inserted. Video laparoscope inserted. Contralateral 5 port placed. Incision was made to exit site, left lower quadrant stab incision, 11 blade and a counter incision, periumbilical left made, an 8 mm port placed, directed through the subcutaneous tissue caudally into the rectus sheath and directed caudally in the peritoneum inferiorly penetrating and visualized laparoscopically. The uterus was inherent to the suprapubic abdominal wall. The omentum hung dependently. Laparoscopic omentopexy performed with transabdominal wall fixation technique using 0 Vicryl GraNee needle. The double-cuffed pigtail peritoneal dialysis catheter placed through the 8-mm port into the abdominal cavity, visualized laparoscopically, grasped with a grasper, held in place with 8-mm port removed, internal cuff placed in the rectus sheath. Using Kori dissector through the planned exit site, stab incision toward the counterincision, the catheter was grasped with a Kori dissector and brought out, placed an external cuff beneath the skin exit site. Subcutaneous tissue was approximated with 3-0 Monocryl, skin with subdermal 4-0 Monocryl. Peritoneal dialysis catheter was flushed with saline and heparinized with saline solution. There was good hemostasis noted. Good omental pexy appreciated. Pneumoperitoneum reduced. All instruments removed. All skin incisions were approximated with interrupted dermal and subdermal 4-0 Monocryl and [place] glue and sterile dressings applied. Job ID: [id number]
== END 2019-03-06 16:10 | disposition home or self-care (01) ==
LOC: SDC 10:44
PROVIDERS: ATTEND Specialist
PROC: 0DUU4JZ Supplement Omentum with Synthetic Substitute, Percutaneous Endoscopic Approach (ICD-10-PCS; principal; 2019-03-06)
PROC: 0WHG43Z Insertion of Infusion Device into Peritoneal Cavity, Percutaneous Endoscopic Approach (ICD-10-PCS; principal; 2019-03-06)
DX: N18.6 End stage renal disease (principal); M32.9 Systemic lupus erythematosus, unspecified; D68.61 Antiphospholipid syndrome; Z79.01 Long term (current) use of anticoagulants; Z79.899 Other long term (current) drug therapy; Z99.2 Dependence on renal dialysis
CPT/HCPCS: 36415; 80048; 85025; 85610; 85730; J0131; J0670; J0690; J1644; J3010

== ENCOUNTER 2022-03-05 15:28 | Outpatient (CLI) | payer BC | END 2022-03-05 15:29 | disposition home or self-care (01) | LOC: BICMAMMO 15:28 | PROVIDERS: ATTEND Internal Medicine Rheumatology | DX: M81.8 Other osteoporosis without current pathological fracture (principal); M85.89 Other specified disorders of bone density and structure, multiple sites | CPT/HCPCS: 72072; 77080 ==

== ENCOUNTER 2023-11-27 15:14 | Outpatient (CLI) | payer BC, OTHER | END 2023-11-27 15:15 | disposition home or self-care (01) | LOC: BICMAMMO 15:14 | PROVIDERS: ATTEND Internal Medicine Rheumatology | DX: M81.8 Other osteoporosis without current pathological fracture (principal); M85.851 Other specified disorders of bone density and structure, right thigh | CPT/HCPCS: 77080 ==

== ENCOUNTER 2025-04-06 14:20 | Outpatient (CLI) | payer OTHER | END 2025-04-06 14:21 | disposition home or self-care (01) | LOC: BICMAMMO 14:20 | PROVIDERS: ATTEND Internal Medicine Rheumatology | DX: M81.8 Other osteoporosis without current pathological fracture (principal); M85.852 Other specified disorders of bone density and structure, left thigh | CPT/HCPCS: 77080 ==